=== PATIENT | male | born 1960 | race Caucasian/White ===

== ENCOUNTER 2016-11-16 08:24 | Emergency (ER) | payer SELFPAY ==
[2016-11-16] MEDS ORDERED: Acetaminophen 500 MG TAB ONE (08:45)
[2016-11-16 09:11] LABS: #Eosinphils 0.2 thou/uL (0.0-0.7); #Lymphocytes 1.7 thou/uL (1.20-3.40); #Monocytes 1.1 thou/uL (0.11-0.59); %Basophils 0.5 % (0.0-1.0); %Eosinophils 1.9 % (0.0-10.0); %Lymphocytes 19.3 % (21.0-51.0); %Monocytes 11.7 % (0.0-10.0); Hematocrit 55.5 % (42.0-52.0); Mean Platelet Volume 8.6 fL (7.4-10.4)
[2016-11-16 09:38] LABS: ALT (SGPT) 64 U/L (8-55); AST (SGOT) 69 U/L (5-34); Alkaline Phosphatase 106 U/L (40-150); Anion Gap 14 mmol/L (10-20); BUN (Urea Nitrogen) 6 mg/dL (8.4-25.7); Bilirubin, Total 0.8 mg/dL (0.2-1.2); Calc. Creatinine Clearance 0 mL/min (70-130); Calcium 9.2 mg/dL (7.8-10.44); Carbon Dioxide 23 mmol/L (22-29); Chloride 105 mmol/L (98-107); Estimated GFR-MDRD Greater than 90; Globulin 3.6 g/dL (2.4-3.5); Protein, Total 7.7 g/dL (6.0-8.3)
[2016-11-16 09:39] LABS: Troponin I Less than 0.010 ng/mL (< 0.028)
== END 2016-11-16 10:32 | disposition home or self-care (01) ==
LOC: ERS 08:24
DX: F15.10 Other stimulant abuse, uncomplicated (principal); F43.9 Reaction to severe stress, unspecified; I10 Essential (primary) hypertension; F32.9 Major depressive disorder, single episode, unspecified; F17.210 Nicotine dependence, cigarettes, uncomplicated; Z79.899 Other long term (current) drug therapy
CPT/HCPCS: 80053; 82553; 84484; 85025; 96360